=== PATIENT | male | born 1960 | race Asian ===

== ENCOUNTER 2016-08-02 11:31 | Emergency (ER) | payer SELFPAY ==
[~2016-08-02] VITALS: Ht 175.3 cm; Wt 82.0 kg
[2016-08-02] MEDS ORDERED: METHOCARBAMOL 500 MG TABLET PO ONE (16:15)
[2016-08-02] MEDS ORDERED: KETOROLAC TROMETHAMINE 60 MG/2 ML VIAL IM ONE (16:15)
[2016-08-02 17:30] VITALS: BP 125/82
== END 2016-08-02 17:49 | disposition home or self-care (01) ==
LOC: EMS 11:34
DX: M54.41 Lumbago with sciatica, right side (principal); S76.011A Strain of muscle, fascia and tendon of right hip, initial encounter; E11.9 Type 2 diabetes mellitus without complications; J44.9 Chronic obstructive pulmonary disease, unspecified; J45.909 Unspecified asthma, uncomplicated; Z87.891 Personal history of nicotine dependence; X58.XXXA Exposure to other specified factors, initial encounter; Y93.89 Activity, other specified; Y92.89 Other specified places as the place of occurrence of the external cause; Y99.8 Other external cause status
CPT/HCPCS: 82962; 96372; 99283; J1885